=== PATIENT | female | born 1950 | race Caucasian/White ===

== ENCOUNTER 2018-09-19 08:44 | Day surgery (SDC) | payer OTHER, SELFPAY ==
[2018-09-19 09:09] VITALS: BP 115/73; PULSE 62; RESP 16; TEMP 36.5; O2SAT 99; BMI 25.7
[2018-09-19] MEDS: SODIUM CHLORIDE 0.9% 1,000 ML 200 ML IV (09:25)
--- NOTE | 2018-09-19 10:17 | PM.HP.1 ---
History of Present Illness Date Patient Seen: 09/19/18 Time Patient Seen: 10:00 Chief complaint: [id number] Narrative: Patient is woman here for screening colonoscopy. Her mother had colon cancer. Her last exam was 12 years ago. No polyps were found at that time. Mother developed colon cancer in her 60s. Patient History Medical History (Updated 09/19/18 @ 10:20 by Smith Miller MD) Cataracts, both eyes (Resolved) Surgical History (Updated 09/19/18 @ 10:20 by Smith Miller MD) History of appendectomy (Resolved) History of left oophorectomy (Resolved) Family History (Updated 09/19/18 @ 10:18 by Smith Miller MD) Mother Cancer Social History household members: none Family & Social History Family History (Updated 09/19/18 @ 10:18 by Smith Miller MD) Mother Cancer Social History: household members none Meds Home Medications Medication Instructions Recorded Confirmed Type [id number] 1 tab PO DAILY 09/19/18 09/19/18 History [Women's Complex] cholecalciferol (vitamin D3) 1,000 unit PO DAILY 09/19/18 09/19/18 History [Vitamin D3] collagen (bovine) 1 tab/day DAILY 09/19/18 09/19/18 History Allergies Allergy/AdvReac Type Severity Reaction Status Date / Time No Known Drug Allergies Allergy Verified 09/19/18 09:03 Review of Systems Review of Systems All systems reviewed & are unremarkable except as noted in HPI and below Exam Vital Signs (past 8 hours): - 09/19/18 09:09 Temperature 97.7 F Pulse Rate 62 Respiratory Rate 16 Blood Pressure 115/73 Pulse Oximetry 99 Oxygen Delivery Method Room Air Narrative Exam Narrative: Pleasant cooperative patient no apparent distress. Lungs are clear to auscultation. No rales or rhonchi. Heart regular rate and rhythm no murmur gallop. Abdomen is soft nontender without mass. No obvious hernias. Patient is alert and oriented x3. Assessment & Plan Assessment & Plan narrative: The patient for a screening colonoscopy. I have discussed the procedure with them. Risks of bleeding, perforation which would necessitate major operation, failure to find remove all lesions, the potential tattoo were all discussed. All questions were answered. They wished to proceed.
--- NOTE | 2018-09-19 10:20 | P.HP_ITS ---
History of Present Illness Date Patient Seen: 09/19/18 Time Patient Seen: 10:00 Chief complaint: [id number] Narrative: Patient is woman here for screening colonoscopy. Her mother had colon cancer. Her last exam was 12 years ago. No polyps were found at that time. Mother developed colon cancer in her 60s. Patient History Medical History (Updated 09/19/18 @ 10:20 by Smith Miller MD) Cataracts, both eyes (Resolved) Surgical History (Updated 09/19/18 @ 10:20 by Smith Miller MD) History of appendectomy (Resolved) History of left oophorectomy (Resolved) Family History (Updated 09/19/18 @ 10:18 by Smith Miller MD) Mother Cancer Social History household members: none Family & Social History Family History (Updated 09/19/18 @ 10:18 by Smith Miller MD) Mother Cancer Social History: household members none Meds Home Medications Medication Instructions Recorded Confirmed Type [id number] 1 tab PO DAILY 09/19/18 09/19/18 History [Women's Complex] cholecalciferol (vitamin D3) 1,000 unit PO DAILY 09/19/18 09/19/18 History [Vitamin D3] collagen (bovine) 1 tab/day DAILY 09/19/18 09/19/18 History Allergies Allergy/AdvReac Type Severity Reaction Status Date / Time No Known Drug Allergies Allergy Verified 09/19/18 09:03 Review of Systems Review of Systems All systems reviewed & are unremarkable except as noted in HPI and below Exam Vital Signs (past 8 hours): - 09/19/18 09:09 Temperature 97.7 F Pulse Rate 62 Respiratory Rate 16 Blood Pressure 115/73 Pulse Oximetry 99 Oxygen Delivery Method Room Air Narrative Exam Narrative: Pleasant cooperative patient no apparent distress. Lungs are clear to auscultation. No rales or rhonchi. Heart regular rate and rhythm no murmur gallop. Abdomen is soft nontender without mass. No obvious hernias. Patient is alert and oriented x3. Assessment & Plan Assessment & Plan narrative: The patient for a screening colonoscopy. I have discussed the procedure with them. Risks of bleeding, perforation which would necessitate major operation, failure to find remove all lesions, the potential tattoo were all discussed. All questions were answered. They wished to proceed.
--- NOTE | 2018-09-19 10:20 | PM.PREOP ---
Pre-operative Note Interval Note History & Physical reviewed/Exam performed by Physician: Yes Changes to H&P: No ASA Class (for procedural sedation): I
[2018-09-19] MEDS: MIDAZOLAM 5 MG/5 ML VIAL IV (10:51)
[2018-09-19] MEDS: fentaNYL 250 MCG/5 ML INJ IV (10:51)
[2018-09-19 11:05] VITALS: BP 105/61; PULSE 64; RESP 10; TEMP 36.3; O2SAT 94
--- NOTE | 2018-09-19 11:07 | P.OP.ENDO_ITS ---
Operative Date/Time/Diagnoses Date of procedure: 09/19/18 Time of procedure: 11:04 Pre-op diagnosis: Screening exam. Last colonoscopy 12 years ago. Mother had colon cancer. Post-op diagnosis: same (Very tortuous colon. Otherwise normal) Procedure & Clinicians Study performed: Colonoscopy Same procedure as scheduled: Yes Indications: Screening Surgeon: Smith Miller Procedure Notes SCOAP/Timeout: Performed Procedure in detail: The patient was placed in the left lateral decubitus position and underwent IV sedation directed by the surgeon consisting of fentanyl and Versed. Digital exam was unremarkable. The scope was inserted and advanced through the rectum into the sigmoid, descending, transverse, and ascending colon. The colon was quite tortuous. I had to apply per pressure, insert a stiffener and ultimately reposition the patient in order to reach the cecum.. The cecum was reached identified by the ileocecal valve and the appendiceal opening. The ileocecal valve was successfully cannulated. The t erminal ileum was normal in appearance. The scope was gradually brought out. No Polyps were found. The scope ultimately was retroflexed in the rectum. The appearance was normal except for 1 small scar on a hemorrhoid.. The scope was removed and the patient tolerated the procedure well. very good prep Scope withdrawal time: Almost 11 minutes Sedation minutes: 40 Specimen(s): other (Very tortuous colon) Complications: none Recommendations: Colonscopy in 5 years (Due to family history of colon cancer) Follow up: as needed Disposition: PACU
[2018-09-19 11:09] VITALS: BP 101/60; PULSE 60; RESP 12; O2SAT 96
[2018-09-19 11:14] VITALS: BP 107/43; PULSE 67; RESP 14; O2SAT 97
[2018-09-19 11:19] VITALS: BP 118/73; PULSE 61; RESP 16; O2SAT 99
[2018-09-19 11:36] VITALS: BP 127/74; PULSE 55; RESP 18; O2SAT 97
== END 2018-09-19 11:58 | disposition home or self-care (01) ==
PROVIDERS: PCP Nurse Practitioner Family; Visit Provider Specialist
PROC: 0DJD8ZZ Inspection of Lower Intestinal Tract, Via Natural or Artificial Opening Endoscopic (ICD-10-PCS; CPT 45378; principal; 2018-09-19 10:45)
DX: Z12.11 Encounter for screening for malignant neoplasm of colon (principal); Z80.0 Family history of malignant neoplasm of digestive organs
CPT/HCPCS: G0105; 99152; 99153; J2250; J3010

== ENCOUNTER → 2019-05-27 07:50 | Outpatient (CLI) | payer MEDICARE, SELFPAY ==
--- NOTE | 2019-05-27 | DI.MG.S_ITS ---
BILATERAL DIGITAL SCREENING MAMMOGRAM 3D/2D WITH CAD WITH AUGMENTATION: 05/27/2019 CLINICAL: Routine screening. Family history of breast cancer. Comparison is made to exams dated: 12/23/2015 mammogram and 12/13/2014 mammogram - [facility]. There are scattered fibroglandular elements in both breasts. Current study was also evaluated with a Computer Aided Detection (CAD) system. Bilateral breast implants are stable. No significant masses, calcifications, or other findings are seen in either breast. There has been no significant interval change. IMPRESSION: NEGATIVE There is no mammographic evidence of malignancy. A 1 year screening mammogram is recommended. This exam was interpreted at Station ID: [id number]. NOTE: For mammograms, a report in lay terms will be sent to the patient. Approximately 15% of breast malignancies will not be visualized mammographically. In the management of a palpable breast mass, a negative mammogram must not discourage biopsy of a clinically suspicious lesion. Electronically Signed By: Martha driscoll/joshua:05/27/2019 08:32:53 letter sent: Normal Exam ACR BI-RADS Category 1: Negative [id number]
== END ==
PROVIDERS: PCP Nurse Practitioner Family; Visit Provider Nurse Practitioner Family
DX: Z12.31 Encounter for screening mammogram for malignant neoplasm of breast (principal); Z80.3 Family history of malignant neoplasm of breast
CPT/HCPCS: 77063; 77067

== ENCOUNTER → 2020-06-10 15:08 | Outpatient (CLI) | payer MEDICARE, SELFPAY ==
[2020-06-10] MEDS: COVID-19 VACC #1, MRNA(MOD) 100 MCG/0.5 ML VIAL IM (15:16)
== END ==
PROVIDERS: PCP Nurse Practitioner Family; Visit Provider Internal Medicine
DX: Z23 Encounter for immunization (principal)
CPT/HCPCS: 0011A; 91301

== ENCOUNTER → 2020-07-08 15:51 | Outpatient (CLI) | payer MEDICARE, SELFPAY ==
[2020-07-08] MEDS: COVID-19 VACC #2, MRNA(MOD) 100 MCG/0.5 ML VIAL IM (16:00)
== END ==
PROVIDERS: PCP Nurse Practitioner Family; Visit Provider Internal Medicine
DX: Z23 Encounter for immunization (principal)
CPT/HCPCS: 0012A; 91301

== ENCOUNTER → 2020-08-29 17:04 | Outpatient (CLI) | payer MEDICARE, SELFPAY ==
--- NOTE | 2020-08-29 | DI.MG.S_ITS ---
BILATERAL DIGITAL SCREENING MAMMOGRAM 3D/2D WITH CAD WITH AUGMENTATION: 08/29/2020 CLINICAL: Routine screening. Family history of breast cancer. Comparison is made to exams dated: 05/27/2019 mammogram, 06/19/2017 mammogram, and 12/23/2015 mammogram - [facility]. There are scattered fibroglandular elements in both breasts. Current study was also evaluated with a Computer Aided Detection (CAD) system. There is a new 1 cm focal asymmetry with an indistinct margin in the left breast at 3 o'clock middle depth 5 cm from the nipple. This was not seen on the prior mammogram. No other significant masses, calcifications, or other findings are seen in either breast. IMPRESSION: INCOMPLETE: NEEDS ADDITIONAL IMAGING EVALUATION The new 1 cm focal asymmetry in the left breast is indeterminate. Additional views with possible ultrasound are recommended. This exam was interpreted at Station ID: [id number]. NOTE: For mammograms, a report in lay terms will be sent to the patient. Approximately 15% of breast malignancies will not be visualized mammographically. In the management of a palpable breast mass, a negative mammogram must not discourage biopsy of a clinically suspicious lesion. Electronically Signed By: Milan Posey acr/:08/30/2020 08:14:57 letter sent: Additional Imaging Needed ACR BI-RADS Category 0: Incomplete [id number]
== END ==
PROVIDERS: PCP Nurse Practitioner Family; Referring Provider Nurse Practitioner Family; Visit Provider Nurse Practitioner Family
DX: Z12.31 Encounter for screening mammogram for malignant neoplasm of breast (principal); Z80.3 Family history of malignant neoplasm of breast
CPT/HCPCS: 77063; 77067

== ENCOUNTER → 2020-09-12 08:42 | Outpatient (CLI) | payer MEDICARE, SELFPAY ==
--- NOTE | 2020-09-12 | DI.MG.S_ITS ---
UNILATERAL LEFT DIGITAL DIAGNOSTIC MAMMOGRAM 3D/2D WITH ADDITIONAL VIEWS: 09/12/2020 CLINICAL: Additional evaluation requested from prior study. Comparison is made to exams dated: 08/29/2020 mammogram, 05/27/2019 mammogram, and 06/19/2017 mammogram - [facility]. There are scattered fibroglandular elements in left breast. There is a developing 0.8 cm irregular focal asymmetry with an indistinct margin in the left breast at 3 o'clock middle depth 5 cm from the nipple. This is confirmed with additional views. No other significant masses or calcifications are seen in the breast. IMPRESSION: INCOMPLETE: NEEDS ADDITIONAL IMAGING EVALUATION The developing 1 cm irregular focal asymmetry in the left breast persists with additional views but remains indeterminate. An ultrasound is recommended. This was performed immediately following this exam. This exam was interpreted at Station ID: [id number]. NOTE: For mammograms, a report in lay terms will be sent to the patient. Approximately 15% of breast malignancies will not be visualized mammographically. In the management of a palpable breast mass, a negative mammogram must not discourage biopsy of a clinically suspicious lesion. Electronically Signed By: Martha driscoll/:09/12/2020 09:23:48 ACR BI-RADS Category 0: Incomplete [id number]
--- NOTE | 2020-09-12 | DI.US.S_ITS ---
LIMITED ULTRASOUND OF LEFT BREAST AND AXILLA: 09/12/2020 CLINICAL: Patient returns today to evaluate a focal asymmetry in the left breast. Comparison is made to exams dated: 09/12/2020 mammogram, 08/29/2020 mammogram, 05/27/2019 mammogram, 06/19/2017 mammogram, and 12/23/2015 mammogram - [facility]. Color flow and real-time ultrasound of the left breast 3 o'clock, and axilla regions were performed. Edward scale images of the real-time examination were reviewed. There is a 0.6 cm x 0.8 cm x 0.6 cm irregular mass with an indistinct and spiculated margin in the left breast at 3 o'clock middle depth 4 cm from the nipple. This irregular mass is hypoechoic with an echogenic boundary. This correlates with mammography findings. Color flow imaging demonstrates that there is increased vascularity. No significant abnormalities were seen sonographically in the left axilla. IMPRESSION: SUSPICIOUS OF MALIGNANCY The 0.8 cm irregular mass in the left breast is at a moderate suspicion for malignancy. An ultrasound guided biopsy is recommended. Findings and recommendations were discussed with the patient by Dr. Lujan at time of exam. This exam was interpreted at Station ID: [id number]. Electronically Signed By: Martha driscoll/:09/12/2020 11:11:42 letter sent: Biopsy Required Ultrasound BI-RADS: 4b Moderate suspicion of malignancy
== END ==
PROVIDERS: PCP Nurse Practitioner Family; Referring Provider Nurse Practitioner Family; Visit Provider Nurse Practitioner Family
DX: R92.8 Other abnormal and inconclusive findings on diagnostic imaging of breast (principal); N63.25 Unspecified lump in the left breast, overlapping quadrants
CPT/HCPCS: 76642; 77065; G0279

== ENCOUNTER → 2020-09-15 | Outpatient (CLI) | payer MEDICARE, SELFPAY ==
--- NOTE | 2020-09-15 | PATH_ITS ---
[facility] Accession Number: [id number] . 01 Material submitted: . breast - SOLID LEFT BREAST MASS . 02 Diagnosis: Solid Mass, Left Breast at 3 o'clock, Middle Depth, 4 cm From Nipple: . 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 Tumor Site: 3 o'clock, Middle depth, 4 cm from nipple. 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 Architectural Patterns: Cribriform and micropapillary. Nuclear Grade: Grade 1 (low grade). Necrosis: Not identified. Microcalcifications: Not identified. Ancillary Studies: Please see microscopic description. MRV 09/22/2020 1554 Local . 02 Comment: As part of ongoing quality control assistant, this case is also reviewed by , who concurs with the given interpretation. . 02 Electronically signed: . Aleja Franks MD, Pathologist NPI- [id number] . 01 Gross description: . The specimen is received in formalin, labeled left, and consists of multiple downey-yellow cores of fibroadipose tissue measuring 2.5 x 1.5 x 0.3 cm in aggregate. The specimen is entirely submitted in cassette A1. . Formalin fixation time: Approximately 64 hours. ([id number]) /[facility] 09/17/2020 1648 Local . 02 Microscopic: . Immunostains were performed on block A1. The control stains showed appropriate reactivity. . RESULTS: E-cadherin: Diminished in region of interest. . 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 . P63: Positive in region of interest. SMMS: Positive in region of interest. CK 5/6: Diminished in region of interest. ER: Strongly positive in region of interest. . Studies support an interpretation of ductal carcinoma in-situ at the focus of interest and mitigate against an invasive tumor. . Receptor studies were performed by immunohistochemistry on sections from block A1 with the following results: . ESTROGEN RECEPTOR (SP1): Positive; strong intensity (greater than 95 % of tumor nuclei). . . TECHNICAL NOTE: Internal controls are positive. . The scoring criteria for breast biomarkers by immunohistochemistry is based on the current ASCO/CAP guidelines (Carina et al, Arch Pathol Lab Med 2010:134(6):907-922 / Jill GILES et al, Arch Pathol Lab Med 2014;138(2):241-256). Deparaffinized sections of formalin fixed tissue (along with appropriate positive controls) are incubated with the above antibody (s). Using the automated [employer] stainer, tissue is incubated with the designated antibody* which is then localized by a non-biotin, dual polymer detection system. The external controls are reviewed for appropriate reactivity and found to be adequate. Results on the target call population are indicated above. These tests have not been validated on decalcified tissue. . * This test was developed and its performance characteristics determined by [employer]. It has not been cleared or approved by the U.S. Food and Drug Administration. The FDA has determined that such clearance or approval is not necessary. This test is used for clinical purposes. It should not be regarded as investigational or for research. . 02 Pathologist provided ICD-10: N63.20, D05.10 . 02 CPT . 795126, E70094, B42656, 232651 Performed at: 01 [facility] [address], [place], [place] [id number] MD Richard Epstein MD Phone: [phone] Performed at: 02 [facility] [address] [place], [place] [id number] MD Stacie Connell MD Phone: [phone]
--- NOTE | 2020-09-15 14:01 | DI.US.S_ITS ---
ULTRASOUND GUIDED BIOPSY LEFT BREAST USING VACUUM DEVICE WITH POST MAMMOGRAPHIC AND ULTRASOUND IMAGIN09/15/2020 CLINICAL: Left breast mass. PATIENT CONSENT: Risks (minor bleeding, infection, vasovagal reaction and repeat procedure), benefits and alternatives were explained to the patient and written informed consent was obtained. Correlation is made to exams dated: 09/15/2020 mammogram, 09/12/2020 ultrasound, 09/12/2020 mammogram, 08/29/2020 mammogram, 05/27/2019 mammogram, and 06/19/2017 mammogram - [facility]. An ultrasound guided biopsy using real-time ultrasound was performed for the oval mass located in the left breast at 3 o'clock anterior depth. This was described on the previous ultrasound report. The skin was prepped in the usual manner. Local anesthetic was administered to the access site. The abnormality was approached from the lateral aspect. A 13 gauge biopsy needle was placed adjacent to the abnormality under ultrasound guidance. Once the needle was documented to be in the correct location, five specimens were obtained using the Mammotome biopsy system. Post procedure mammographic and ultrasound imaging demonstrates the clip at the targeted area. The specimens were sent to the laboratory for pathological analysis. IMPRESSION: ULTRASOUND GUIDED BIOPSY MALIGNANT Ultrasound guided biopsy of the mass in the left breast anterior depth was successful. Pathology indicates malignant ductal carcinoma in situ (DCIS). A surgical/oncologic consultation is recommended. This exam was interpreted at Station ID: [id number]. Rylie rush jr/joshua:09/23/2020 16:03:05
--- NOTE | 2020-09-15 14:02 | DI.MG.S_ITS ---
UNILATERAL LEFT DIGITAL DIAGNOSTIC MAMMOGRAM: 09/15/2020 CLINICAL: Left post clip. Comparison is made to exams dated: 09/12/2020 mammogram, 08/29/2020 mammogram, and 05/27/2019 mammogram - [facility]. There are scattered fibroglandular elements in left breast. There is a biopsy clip in the 3 o'clock area of the left breast at the biopsy site. IMPRESSION: Biopsy clip in expected localation. This exam was interpreted at Station ID: [id number]. NOTE: For mammograms, a report in lay terms will be sent to the patient. Approximately 15% of breast malignancies will not be visualized mammographically. In the management of a palpable breast mass, a negative mammogram must not discourage biopsy of a clinically suspicious lesion. Electronically Signed By: Rylie Pena M.D. fx/:09/15/2020 16:36:04 ACR BI-RADS Category n/a
== END ==
LOC: US 14:00
PROVIDERS: PCP Nurse Practitioner Family; Referring Provider Nurse Practitioner Family; Visit Provider Nurse Practitioner Family
DX: D05.82 Other specified type of carcinoma in situ of left breast (principal)
CPT/HCPCS: 19083; 77065